=== PATIENT | male | born 1935 | race American Indian/Alaskan Native ===

== ENCOUNTER 2017-03-12 07:49 | Day surgery (SDC) | payer MEDICARE ==
[2017-03-12 08:21] VITALS: BMI 36.3
[2017-03-12] MEDS ORDERED: Propofol 10 mg/ml Inj (20 ML) ONE (09:20)
--- NOTE | 2017-03-12 09:21 | CP.SDSHP ---
Same Day Surgery H & P - History Proposed Procedure: COLONSCOPY Pre-Op Diagnosis: SEE NOTES - Previous Medical/Surgical History Cardiac: Hypertension Pain: 2.Mild Pain - Allergies Allergies: Allergies No Known Allergies Allergy (Verified 01/26/14 07:44) - Physical Exam General Appearance: N Vital Signs: Vital Signs 03/12/17 08:24 Temperature 97.4 F L Pulse Rate 69 Respiratory 17 Rate Blood Pressure 160/76 H O2 Sat by Pulse 100 Oximetry Mental Status: Alert & Oriented x3 Neuro: WNL Heart: Other Lungs: WNL GI: WNL - {Optional Preform as Required} Breast: WNL Abdomen: Other Rectal: Other Integument: WNL : WNL Ortho: Other ENT: WNL - Impression Pt. Evaluated Today:Candidate for Anesthesia & Procedure: Yes - Date & Time Time: 09:21 Short Stay Discharge - Short Stay Discharge Admitting Diagnosis/Reason for Visit: COLON POLYP Disposition: HOME/ ROUTINE
[2017-03-12] MEDS ORDERED: Lactated Ringer's 500 ML IV ONE ×2 (09:29)
[2017-03-12] MEDS ORDERED: Lactated Ringer's 500 ML IV SCH (09:30)
[2017-03-12] MEDS ORDERED: Belladonna-Phenobarbital PO ONE (09:50)
[2017-03-12 10:05] VITALS: O2SAT 98
[2017-03-12 10:24] VITALS: TEMP 97.2
[2017-03-12 11:13] VITALS: BP 170/86; PULSE 69; RESP 19
== END 2017-03-12 11:10 | disposition home or self-care (01) ==
LOC: C.ENDO 07:49
PROVIDERS: ATTEND Specialist
DX: D12.0 Benign neoplasm of cecum (principal); I10 Essential (primary) hypertension; K52.9 Noninfective gastroenteritis and colitis, unspecified; K64.8 Other hemorrhoids
CPT/HCPCS: 45388; 88305; J2704; J3010; J7120

== ENCOUNTER 2017-10-22 06:33 | Day surgery (SDC) | payer MEDICARE ==
[2017-10-21 14:06] VITALS: BMI 36.6
[2017-10-22 07:25] VITALS: O2SAT 100
[2017-10-22] MEDS ORDERED: Lactated Ringer's 1,000 ML IV ONE (08:15)
--- NOTE | 2017-10-22 08:15 | CP.SDSHP ---
Same Day Surgery H & P - History Proposed Procedure: EGD Pre-Op Diagnosis: SEE NOTES - Previous Medical/Surgical History Cardiac: Hypertension Misc: Other Previous Surgical History: GASTRIC / PROSTATE SX. - Allergies Allergies: Allergies No Known Allergies Allergy (Verified 10/21/17 14:05) - Physical Exam General Appearance: N Vital Signs: Vital Signs 10/22/17 06:55 Temperature 97.9 F Pulse Rate 71 Respiratory 19 Rate Blood Pressure 183/81 H O2 Sat by Pulse 100 Oximetry Mental Status: Alert & Oriented x3 Neuro: WNL Heart: Other Lungs: WNL GI: Other - {Optional Preform as Required} Breast: WNL Abdomen: Other Rectal: Other Integument: WNL : Other Ortho: WNL ENT: WNL - Impression Pt. Evaluated Today:Candidate for Anesthesia & Procedure: Yes - Date & Time Time: 08:16 Short Stay Discharge - Short Stay Discharge Admitting Diagnosis/Reason for Visit: DYSPEPSIA Disposition: HOME/ ROUTINE
[2017-10-22] MEDS ORDERED: Propofol 10 mg/ml Inj (20 ML) ONE (08:16)
[2017-10-22] MEDS ORDERED: Pantoprazole 40 mg EC Tab PO STA (08:22)
[2017-10-22] MEDS ORDERED: Belladonna-Phenobarbital PO STA (08:22)
[2017-10-22] MEDS ORDERED: Lactated Ringer's 1,000 ML IV SCH (08:30)
[2017-10-22 08:37] VITALS: TEMP 97.1
[2017-10-22 08:42] VITALS: PULSE 62
[2017-10-22 09:15] VITALS: BP 130/82; RESP 20
== END 2017-10-22 09:14 | disposition home or self-care (01) ==
LOC: C.ENDO 06:33
PROVIDERS: ATTEND Specialist
DX: K26.9 Duodenal ulcer, unspecified as acute or chronic, without hemorrhage or perforation (principal); K44.9 Diaphragmatic hernia without obstruction or gangrene; I10 Essential (primary) hypertension; Z79.899 Other long term (current) drug therapy; B96.81 Helicobacter pylori [H. pylori] as the cause of diseases classified elsewhere
CPT/HCPCS: 43239; 88305; 88342; J2001; J2704; J7120

== ENCOUNTER 2018-09-21 07:01 | Day surgery (SDC) | payer MEDICARE ==
[2017-10-21 14:06] VITALS: BMI 36.6
[2018-09-21] MEDS ORDERED: Lactated Ringer's 500 ML IV ONE ×2 (08:17)
--- NOTE | 2018-09-21 08:21 | CP.SDSHP ---
Same Day Surgery H & P - History Proposed Procedure: EGD Pre-Op Diagnosis: SEE NOTES - Previous Medical/Surgical History Cardiac: Hypertension Endocrine/Metabolic: Other Neuro: Backaches Misc: Other Pain: 4.Moderate Pain - Allergies Allergies: Allergies No Known Allergies Allergy (Verified 09/21/18 07:18) - Physical Exam General Appearance: N Vital Signs: Vital Signs 09/21/18 09/21/18 07:05 07:37 Temperature 98.7 F Pulse Rate 79 79 Respiratory 19 Rate Blood Pressure 161/77 H O2 Sat by Pulse 100 Oximetry Mental Status: Alert & Oriented x3 Neuro: WNL Heart: Other Lungs: WNL GI: Other - {Optional Preform as Required} Breast: WNL Abdomen: Other Rectal: Other Integument: WNL : WNL Ortho: Other ENT: WNL - Impression Pt. Evaluated Today:Candidate for Anesthesia & Procedure: Yes - Date & Time Time: 08:21 Short Stay Discharge - Short Stay Discharge Admitting Diagnosis/Reason for Visit: GASTRIC ULCER, UNSP ACUTE OR CHRONIC, W/O HEMOR Disposition: HOME/ ROUTINE
[2018-09-21] MEDS ORDERED: Belladonna-Phenobarbital PO STA (08:22)
[2018-09-21] MEDS ORDERED: Pantoprazole 40 mg EC Tab PO STA (08:22)
[2018-09-21] MEDS ORDERED: Lidocaine Hydrochloride 5 ML INJ ONE (08:23)
[2018-09-21] MEDS ORDERED: Etomidate 20 mg/10ml Inj IV ONE (08:23)
[2018-09-21] MEDS ORDERED: Propofol 10 mg/ml Inj (20 ML) ONE (08:23)
[2018-09-21 11:20] VITALS: RESP 20; TEMP 98
[2018-09-21 11:39] VITALS: BP 150/80; PULSE 75; O2SAT 100
== END 2018-09-21 10:30 | disposition home or self-care (01) ==
LOC: C.ENDO 07:01
PROVIDERS: ATTEND Specialist
DX: K25.9 Gastric ulcer, unspecified as acute or chronic, without hemorrhage or perforation (principal); K26.9 Duodenal ulcer, unspecified as acute or chronic, without hemorrhage or perforation; K31.9 Disease of stomach and duodenum, unspecified
CPT/HCPCS: 43239; 88305; 88342; J0696; J2704; J7120